=== PATIENT | male | born 1980 | race Caucasian/White ===

== ENCOUNTER 2016-07-09 19:53 | Emergency (ER) | payer BC ==
--- NOTE | ~2016-07-09 | CR114 ---
[facility]. [facility] A Service of [facility] & [facility] RADIOLOGY TEXT RESULTS PATIENT: NEIL CARY LOCATION: SED : [birth year] UNIT #: [id number] AGE: [address]: Alon Lacey MD SEX: M ORDER DR: [id number] [address] [address] [id number] E MR#: [id number] Acc #: [id number] NAME: NEIL CARY : 1980 SEX: M STUDY DATE/TIME: 07/09/2016 19:40 UNIT: SED ROOM: STUDY DESCRIPTION: CR Finger 2 View 5Th Lt Attending Physician: Alon Lacey M.D. Ordering Physician: Alon Lacey M.D. Primary Care Physician: No Primary Care Physician MEDICAL IMAGING REPORT This report is preliminary unless electronic signature is present. EXAM Left fifth digit, 3 views. DATE OF EXAM 07/09/2016 HISTORY Post-reduction of the dislocation. FINDINGS 2 views of the left fifth digit demonstrate bone alignment is satisfactory. The dislocation of the PIP joint noted earlier today has been reduced. No joint space narrowing. Mild soft tissue swelling about the PIP joint. There is a tiny well-marginated calcification along the volar margin of the PIP joint which was previously noted and could be a tiny avulsion fracture. Dictated by... Orlin Alatorre M.D. THIS IS AN ELECTRONICALLY VERIFIED REPORT Orlin Alatorre M.D. at 07/10/2016 3:36 PM ANDRES/hipolito TD: 07/10/2016 00:31 JOB #: [id number] MEDICAL IMAGING REPORT
--- NOTE | ~2016-07-09 | CR114 ---
[facility] A Service [facility] RADIOLOGY TEXT RESULTS PATIENT: NEIL CARY LOCATION: SED : 76 UNIT #: [id number] AGE: [address]: Alon Lacey MD SEX: M ORDER DR: [id number] [place] [id number] E MR#: [id number] Acc #: [id number] NAME: NEIL CARY : 1980 SEX: M STUDY DATE/TIME: 07/09/2016 19:23 UNIT: SED ROOM: STUDY DESCRIPTION: CR Finger 2 View 5Th Lt Attending Physician: Alon Lacey M.D. Ordering Physician: Alon Lacey M.D. Primary Care Physician: No Primary Care Physician MEDICAL IMAGING REPORT This report is preliminary unless electronic signature is present. EXAM Two views of the left little finger INDICATION Left 5th finger pain and deformity after injuring his finger playing volleyball. FINDINGS This patient is noted to have a subluxation at the proximal interphalangeal joint of the left little finger. The distal fragment is displaced posteriorly and medially relative to the proximal fragment. Fragments do appear mildly overriding. There is also an ossific fragment which is seen anterior to the distal aspect of the proximal phalanx of the little finger which may reflect an additional avulsion injury. IMPRESSION Subluxation identified at the proximal interphalangeal joint of the little finger. Patient is also noted to have a small ossific fragment seen anterior to the proximal phalanx of the little finger which may reflect avulsion injury. Dictated by... Shannan Hernández M.D. THIS IS AN ELECTRONICALLY VERIFIED REPORT Shannan Hernández M.D. at 07/12/2016 1:19 PM AFF/ea TD: 07/10/2016 00:08 JOB #: [id number] [facility] A Service [facility] RADIOLOGY TEXT RESULTS PATIENT: NEIL CARY LOCATION: [facility] #: [id number] : [birth year] UNIT #: [id number] AGE: [address]: Alon Lacey MD SEX: M ORDER DR: MEDICAL IMAGING REPORT
[~2016-07-09 19:53] MED LIST: MOBIC15 MG PO
== END 2016-07-09 20:21 | disposition home or self-care (01) ==
LOC: SED 19:53
DX: S63.257A Unspecified dislocation of left little finger, initial encounter (principal); J45.909 Unspecified asthma, uncomplicated; Y93.68 Activity, volleyball (beach) (court)
CPT/HCPCS: 29125; 73140; 99283